=== PATIENT | male | born 1985 | race African-American/Black ===

== ENCOUNTER 2017-03-12 20:27 | Inpatient (IN) | payer OTHER ==
--- NOTE | ~2017-03-12 | PN ---
Unit #: [id number] #: [id number] Patient: VASILE CORTÉS [id number] [place] [address] [id number] I MR#: [id number] NAME: VASILE CORTÉS ROOM: P210 Age: 31 Sex: M Admission Date: 03/12/2017 : 1985 Attending Physician: Jonny Levine M.D. Admitting Physician: Jonny Levine M.D. Primary Care Physician: [facility] Phys[facility] PRO[facility] NOT[facility] DATE OF SERVICE: 03/15/2017 LOCATION [facility], [address] [place] [address], room #210, bed #1. SUBJECTIVE This is a 31-year-old male with ongoing issues with detox issues and related complications. The patient continuing to report feeling aches and pains, upset stomach, tremors, diaphoresis, and sleep disturbance. He did report a positive response to the Seroquel last night, but it was not fully effective. The patient is still isolative to self, limited interaction with other, some nauseousness reported today. MENTAL STATUS EXAMINATION General appearance; this is a moderately groomed male, fairly pleasant and cooperative, responsive with limited eye contact. Speech was clear and coherent with normal prosody. Mood was dysphoric with a constricted affect. Thought process and content were grossly organized and linear. No overt evidence of psychosis. No SI. No HI reported or elicited. The patient's memory was grossly intact. Associations were normal. Cognitive function was at baseline. He was alert and oriented x4. Insight and judgment are limited, but improving. RECOMMENDATIONS We will continue the patient's admission for safety and stabilization for ongoing issues of detox issues and related complications for symptoms as noted above. We will continue with monitoring on a daily basis. I will increase the patient's Seroquel tonight to 100 mg to help with better sleep and comorbid mood issues with his detox. We will continue to monitor and make appropriate disposition plans as the patient progresses. Dictated by... Jonny Levine M.D. SB/seanl TD: 03/15/2017 14:52 JOB #: [id number] Unit #: [id number] #: [id number] Patient: MILANAVASILEUS JOHNSTON PROGRESS NOTES Page 1 of 1 X Jonny Levine MD PROGRESS NOTE
--- NOTE | ~2017-03-12 | DS ---
Unit #: [id number] #: [id number] Patient: VASILE CORTÉS [id number] [place] [address] [id number] I MR#: [id number] NAME: VASILE CORTÉS ROOM: P210 Age: 31 Sex: M Admission Date: 03/12/2017 : 1985 Discharge Date: 03/15/2017 Attending Physician: Jonny Levine M.D. Primary Care Physician: Primary Care Physician No DISCHARGE SUMMARY REASON FOR ADMISSION Opiate dependency and with related withdrawal DIAGNOSTIC STUDIES The patient had routine blood work done which included a CMP that was grossly within normal parameters with the exception of glucose elevated at 130 in a random fashion. CBC was well within normal parameters except for a hemoglobin of 12.9, MCV of 81.0, MCH of 26.3. RPR was nonreactive. Toxicology screen was positive for amphetamines and opiates. Urinalysis was normal with the exception of 0.2 urobilinogen. HOSPITAL COURSE The patient was admitted for safety and stabilization for issues with opiate dependency and was placed on appropriate detox protocol for such. The patient had complaints of symptoms of upset stomach, headaches, aches and pains, restless legs, disturbed sleep, disoriented, anxiety, some nausea. The patient was fairly isolative to himself in his room with limited interaction on the unit. Over the course of the hospitalization, the patient showed improvement in most symptoms. Sleep remained an issue. He initially had been prescribed trazodone; that was discontinued in favor of Seroquel having it increased to 100 mg on his day of discharge. On the day of discharge, the patient was still having symptoms of withdrawal, but he decided he wanted to leave the hospital after he had been evaluated. He was not having any suicidal or homicidal ideation or profound mood issues that would have negated this, so he was allowed to be discharged home. No medications prescribed. All medications have simply been part of detox protocol and/or related complications. DISCHARGE DIAGNOSES 1. Opiate dependency with withdrawal 2. History of asthma FOLLOWUP CARE With [facility] DISCHARGE MEDICATIONS None CONDITION AT DISCHARGE Improving PROGNOSIS Unit #: [id number] #: [id number] Patient: VASILE CORTÉS Poor, given the patient's reluctance to complete treatment DIET AND ACTIVITY Diet regular. Activity as tolerated with sobriety encouraged. Dictated by... Jonny Levine M.D. SB/thee TD: 03/16/2017 09:48 JOB #: [id number] DISCHARGE SUMMARY Page 1 of 1 X Jonny Levine MD X DISCHARGE SUMMARY
--- NOTE | ~2017-03-12 | PN ---
Unit #: [id number] #: [id number] Patient: VASILE CORTÉS [id number] [facility] [address] [place] [address] [id number] I MR#: [id number] NAME: VASILE CORTÉS ROOM: P210 Age: 31 Sex: M Admission Date: 03/12/2017 : 1985 Attending Physician: Jonny Levine M.D. Admitting Physician: Jonny Levine M.D. Primary Care Physician: Primary Care Physician Jennifer JOHNSTON PROGRESS NOTES DATE 03/14/2017 SUBJECTIVE UPDATE This is a 31-year-old male who is here in the hospital with ongoing issues with substance abuse and dependency with withdrawal. Patient reports feeling "bad" today with aches and pains, upset stomach, headaches, poor sleep last night, poor energy. No vomiting or diarrhea as of yet with some mild tremors were noted in his hands. MENTAL STATUS EXAMINATION General appearance was a moderately groomed male, improved eye contact today but still limited. Speech was clear and coherent. Mood was dysphoric with a constricted affect. Thought process and content were grossly organized and linear. No overt evidence of psychosis. No active SI or HI. Patient's memory was grossly intact. Associations were normal. Cognitive functioning was at baseline. Alert and oriented times four. Insight and judgement is limited but improving. RECOMMENDATIONS Will continue patient's admission for safety and stabilization for ongoing detox issues with symptoms as noted above. Will evaluate in the morning to see how progress is being made for that aspect with further care to be determined upon that evaluation. Dictated by... Suri Curtis/solange TD: 03/14/2017 21:57 JOB #: [id number] Unit #: [id number] #: [id number] Patient: VASILE CORTÉS PROGRESS NOTES Page 1 of 1 X Jonny Levine MD X PROGRESS NOTE
--- NOTE | ~2017-03-12 | PA ---
Unit #: [id number] #: [id number] Patient: VASILE CORTÉS [id number] [place] [address] [id number] I MR#: [id number] NAME: VASLIE CORTÉS ROOM: P210 Age: 31 Sex: M Admission Date: 03/12/2017 : 1985 Date of Assessment: 03/13/2017 Attending Physician: Jonny Levine M.D. Admitting Physician: Jonny Levine M.D. Primary Care Physician: Primary Care Physician No PSYCHIATRIC ASSESSMENT LOCATION [facility] [address], room #210, bed #1. INFORMANTS The patient and chart, both seem fairly reliable. CHIEF COMPLAINT "I have been doing heroin." HISTORY PRESENTING ILLNESS This is a 31-year-old male with a longstanding history of IV heroin use daily going back to "several years." The patient overall was somewhat sedated and limited in his cooperation with interview process, but answers were clear, brief and nonexpansive. The patient apparently has been using IV heroin daily. It is unclear how much. He recently went through detox at [facility] about two months ago and he has been using daily again for at least the last 4-6 weeks. He denied other drugs of abuse in terms of regular use, but beyond that was not more explanatory. He denied any SI or HI or any acute mood issues. Again seems somewhat fatigued and sedated at this time. Denied any history of severe medical complications from withdrawal before. PAST PSYCHIATRIC HISTORY According to patient nothing of consequence, has never been treated for mood disorders or other psychiatric problems. Denies any history of SI, HI or any psychosis. FAMILY HISTORY Significant for chemical dependency, but again vague in terms of who and what. SOCIAL HISTORY The patient is single. Has 3 children. He is currently unemployed. Does have some support through family, though. MEDICAL HISTORY The patient reports history of asthma. MEDICATION HISTORY Currently none. ALLERGIES Include sulfa drugs. Unit #: [id number] #: [id number] Patient: VASILE CORTÉS SUBSTANCE ABUSE HISTORY As noted above. Unclear about other previous treatments given patient's limited cooperation. MENTAL STATUS EXAMINATION General appearance is a limitedly groomed male, limited cooperation. Speech was clear, but brief. Mood was sedate with a little blunted affect. Thought process and content were grossly organized and linear. No overt evidence of psychosis. No SI and no HI reported or elicited. The patient's associations were normal. Cognitive function seems to be at baseline. ASSETS AND LIABILITIES Assets include previous exposure to CD treatment. Liabilities include unemployment, unclear support network, continued use of substances and noncompliance with followup care. ADMITTING DIAGNOSES 1. Opioid dependency with withdrawal. 2. Asthma by history. PSYCHIATRIC PLANS Continue patient's admission for safety and stabilization for ongoing issues with opioid dependency and likely detox with detox protocol in place at this time for COWS scale. The patient will be monitored closely for any signs of complications with treatment goal being resolution of symptoms in a safe controlled environment. Discharge planning most likely requiring community resources if not return to residential treatment. ESTIMATED LENGTH OF STAY Approximately 4 to 5 days depending on the patient's progress and response to treatment. Dictated by... Suri Curtis/svitlana TD: 03/13/2017 12:24 JOB #: [id number] PSYCHIATRIC ASSESSMENT Page 1 of 1 X Jonny Levine MD X PSYCHIATRIC ASSESSMENT
--- NOTE | ~2017-03-12 | HP ---
Unit #: [id number] #: [id number] Patient: VASILE CORTÉS [id number] [place] [address] [id number] I MR#: [id number] NAME: VASILE CORTÉS ROOM: P210 Age: 31 Sex: M Admission Date: 03/12/2017 : 1985 Attending Physician: Jonny Levine M.D. Admitting Physician: Jonny Levine M.D. Primary Care Physician: Primary Care Physician No HISTORY AND PHYSICAL HISTORY OF PRESENT ILLNESS Vasile is a 31 year old, admitted to [address] [place] [address], because of his drug use which includes, IV heroin. PAST MEDICAL HISTORY 1. Long history of opioid abuse to include IV heroin. 2. Asthma. PAST SURGICAL HISTORY Nothing reported. ALLERGIES Sulfa. SOCIAL HISTORY He smokes one pack per day. He denies alcohol, and admits to long history of opioid abuse to include IV heroin. FAMILY HISTORY Medically noncontributory. REVIEW OF SYSTEMS CONSTITUTIONAL: No fever or chills. HEENT: Denies any sore throat, ear pain or runny nose. CARDIOVASCULAR: Denies chest pain, irregular heart rhythm or palpitations. CHEST: Denies shortness of breath or cough. No hemoptysis. GASTROINTESTINAL: Denies nausea, vomiting, diarrhea or chronic constipation. ENDOCRINE: Denies history of increased thirst or urination. No recent significant weight loss or gain. GENITOURINARY: Denies dysuria, frequency, or hematuria. SKIN: Denies any rashes. HEMATOLOGIC: Denies history of increased bleeding or bruising. MUSCULOSKELETAL: Denies any hot, swollen joints. No generalized muscle pain. NEUROLOGIC: Denies problems with vision or speech. No frequent, severe headaches. No numbness, tingling or weakness in any extremities. Denies loss of bladder or bowel control. CURRENT MEDICATIONS Detox protocol. PHYSICAL EXAMINATION Unit #: [id number] #: [id number] Patient: VASILE CORTÉS GENERAL: Alert, well-nourished, no apparent distress. VITAL SIGNS: Blood pressure 130/72, heart rate 80, respirations 16, and temperature 98.6. WEIGHT: 201 pounds. HEIGHT: 5 feet 0 inches. SKIN: Warm and dry without rash or lesion. HEENT: Normocephalic. TMs not viewed. Oral and nasal passages clear. Conjunctivae clear. PERRLA. EOMs intact. NECK: Supple without lymphadenopathy or thyromegaly. HEART: Regular rate and rhythm without murmur. LUNGS: Clear. ABDOMEN: Soft, nontender. : Not done. EXTREMITIES: No evidence of cyanosis, clubbing or edema. Moves all without focal deficit. NEUROLOGICAL: Grossly within normal limits. Cranial Nerves: II: Visual srinivasan are intact. III, IV AND : Extraocular movements are intact. Pupils are equal, round and reactive to light. V: Facial sensation is grossly normal. VII: Facial movements and expression are normal. VIII: Auditory acuity grossly intact. IX, X: Uvula is midline. Phonation is normal. XI: Patient shrugs shoulders and turns head normally. XII: Tongue protrudes in the midline. Sensory and Motor Function: Sensory and motor sensation is grossly normal. Motor: moves all extremities well. Coordination: Gait is normal. Deep Tendon Reflexes: Intact. IMPRESSION Psychiatric admission. RECOMMENDATIONS Psychiatric, per psychiatrist. MEDICAL I see no contraindications to participating in facility's activities. MEDICAL PROGNOSIS Good. MEDICAL CONDITION Stable. Dictated by... Areli Edwards P.A.-C. for Suri Carter/patricia TD: 03/14/2017 06:47 JOB #: [id number] Unit #: [id number] #: [id number] Patient: VASILE CORTÉS HISTORY AND PHYSICAL Page 1 of 1 X Areli Edwards X HISTORY AND PHYSICAL
[~2017-03-12 20:27] MED LIST: DOXY 100100 MG PO; NO MEDICATIONS
[2017-03-13 09:55] LABS: BASOPHIL# 0.1 X10e3 (0-0.3); BASOPHIL% 1.3 % (0-2.5); EOSINOPHIL# 0.1 X10e3 (0-0.7); EOSINOPHIL% 1.9 % (0.0-7.0); HEMATOCRIT 39.6 % (38.0-50.0); HEMOGLOBIN 12.9 gm/dL (13.0-16.0); LYMPHOCYTE# 2.9 X10e3 (1.0-3.5); LYMPHOCYTE% 41.1 % (17.0-45.0); MEAN CORPUSCULAR HEMOGLOBIN 26.3 PG (28-34); MEAN CORPUSCULAR HGB CONC 32.5 g/dL (30-36); MEAN PLATELET VOLUME 8.7 FL (6.5-11.5); MONOCYTE# 0.4 X10e3 (0-1.0); MONOCYTE% 5.1 % (3.0-12.0); NEUTROPHIL# 3.6 X10e3 (1.5-7.1); NEUTROPHIL% 50.6 % (40-75); PLATELET COUNT 237 X10e3 (140-420); RED BLOOD COUNT 4.89 X10e (3.90-5.60); RED CELL DISTRIBUTION WIDTH 12.5 % (11.0-15.5); WHITE BLOOD COUNT 7.1 X10e3 (4.0-10.5)
[2017-03-13 10:01] LABS: DIFF IND NO
[2017-03-13 10:20] LABS: ALBUMIN SERUM 3.6 g/dL (3.5-5.0); BILIRUBIN,TOTAL 0.8 mg/dL (0.2-2.0); BUN/CREATININE RATIO 7.69; CALCIUM SERUM 9.4 mg/dL (8.4-10.2); CREATININE SERUM 1.3 mg/dL (0.6-1.4); GLOM FILT RATE Estimated 85.5 mL/min (>60); POTASSIUM 3.9 mmol/L (3.5-5.1); PROTEIN TOTAL SERUM 6.5 g/dL (6.0-8.3)
[2017-03-14 09:57] LABS: URINE APPEARANCE CLEAR; URINE BILIRUBIN NEG (NEG); URINE BLOOD NEG (NEG); URINE COLOR YELLOW; URINE GLUCOSE NEG (NEG); URINE KETONE NEG (NEG); URINE LEUKOCYTE ESTERASE NEG (NEG); URINE NITRATE NEG (NEG); URINE PROTEIN NEG (NEG); URINE SPECIFIC GRAVITY 1.008 (1.003-1.035); URINE UROBILINOGEN 0.2 MG/DL (NEG)
[2017-03-14 10:16] LABS: AMPHETAMINE POS (NEG); BARBITURATES NEG (NEG); BENZODIAZEPINES NEG (NEG); COCAINE NEG (NEG); MARIJUANA NEG (NEG); OPIATES POS (NEG); TRICYCLIC ANTIDEPRESSANTS NEG (NEG); U METHADONE NEG (NEG)
== END 2017-03-15 14:17 | disposition home or self-care (01) | DRG 897 ==
LOC: P2S 22:47
PROVIDERS: Psychiatry & Neurology Psychiatry
PROC: HZ2ZZZZ Detoxification Services for Substance Abuse Treatment (ICD-10-PCS; principal; 2017-03-12)
DX: F11.23 Opioid dependence with withdrawal (principal); F17.210 Nicotine dependence, cigarettes, uncomplicated; J45.909 Unspecified asthma, uncomplicated; Z88.2 Allergy status to sulfonamides
CPT/HCPCS: 80053; 80307; 81003; 85025; 86592